=== PATIENT | male | born 1960 | race Caucasian/White ===

== ENCOUNTER 2022-05-11 05:37 | Outpatient (CLI) | payer MEDICAID ==
[~2022-05-11] VITALS: Ht 182.9 cm; Wt 85.0 kg
[2022-05-16] MEDS ORDERED: MIRT-69 PO (14:45)
[2022-05-16] MEDS ORDERED: ESOM20CA37 PO (14:45)
[2022-05-16] MEDS ORDERED: MULT-1104 PO (14:45)
[2022-05-16] MEDS ORDERED: CITA20TA12 PO (14:45)
[2022-05-16] MEDS ORDERED: DILT120T3 PO (14:45)
[2022-05-16] MEDS ORDERED: MTC10T PO (14:45)
[2022-05-16] MEDS ORDERED: OXYC-556 PO (14:45)
[2022-05-16] MEDS ORDERED: ROSU20TA32 PO (14:45)
[2022-05-16] MEDS ORDERED: ASPI81TA16 PO (14:45)
[2022-05-16] MEDS ORDERED: TMSL.4C PO (14:45)
== END 2022-05-16 15:01 | disposition home or self-care (01) ==
LOC: PREOP 05:37
PROVIDERS: ATTEND Otolaryngology Otolaryngology/Facial Plastic Surgery
DX: Z01.818 Encounter for other preprocedural examination (principal); J34.89 Other specified disorders of nose and nasal sinuses

== ENCOUNTER 2022-05-18 07:44 | Day surgery (SDC) | payer MEDICAID, MEDICARE ==
[2022-05-18] VITALS (11 sets, daily range): BP systolic 101–133; BP diastolic 68–82
[~2022-05-18] VITALS: Ht 182.9 cm; Wt 85.0 kg
[~2022-05-18 07:44] MED LIST: ASPI81TA16 PO; CITA20TA12 PO; DILT120T3 PO; ESOM20CA37 PO; MIRT-69 PO; MTC10T PO; MULT-1104 PO; OXYC-556 PO; ROSU20TA32 PO; TMSL.4C PO
[2022-05-18] MEDS ORDERED: LACTATED RINGERS 1,000 ML IV PRN (08:00)
[2022-05-18] MEDS ORDERED: COCAINE HCL 4% 2 ML SYR ONE (08:38)
[2022-05-18] MEDS ORDERED: LIDOCAINE/EPI 1%-1:100,000 (XYLOCAINE) 30ML ONE (08:38)
[2022-05-18] MEDS ORDERED: PHENYLEPHRINE 0.5% NASAL SPR (NEO-SYNEPHRINE) REG ONE (08:39)
[2022-05-18] MEDS ORDERED: BSS 15 ML ONE (08:39)
[2022-05-18] MEDS ORDERED: LIDOCAINE PF 2% 5 ML (XYLOCAINE) VIAL ONE (08:42)
[2022-05-18] MEDS ORDERED: ONDANSETRON 4 MG/2 ML (SDV) Z0FRAN ONE (08:42)
[2022-05-18] MEDS ORDERED: fentaNYL INJ 100 MCG/2 ML AMP ONE (08:42)
[2022-05-18] MEDS ORDERED: MIDAZOLAM 2 MG/2 ML (VERSED) VIAL ONE (08:42)
[2022-05-18] MEDS ORDERED: proPOfol 200 MG/20 ML (DIPRIVAN) VIAL IV ONE (08:42)
[2022-05-18] MEDS ORDERED: SEVOFLURANE (ULTANE) 15 ML INHAL SOLN ONE (08:42)
--- NOTE | 2022-05-18 08:47 | Progress Note-Pre Operative ---
Pre-Operative Progress Note Date of Available H&P: May 18, 2022 Date H&P Reviewed: May 18, 2022 Time H&P Reviewed: 08:30 History & Physical: H&P Reviewed, Patient Examed, No changes noted Changes from last HP none Pre-Operative Diagnosis: Nasoseptal Perforation with REcurrent Bleeding DANILO RIOS MD May 18, 2022 08:47
--- NOTE | 2022-05-18 08:48 | Progress Note-Post Operative ---
Post-Operative Progess Note Surgeon (s)/Safety Officer (s) Surgeon DANILO RIOS MD Safety Officer n/a Pre-Operative Diagnosis Nasoseptal Perforation with REcurrent Bleeding Post-Operative Diagnosis same Post-Op Procedure Note Date of Procedure: May 18, 2022 Name of Procedure Performed: Insetion of Nasopseptal Button Description & Findings Description and Findings: n/a Anesthesia Type get Estimated Blood Loss minimal Packing none. Specimen(s) collected/removed none DANILO RIOS MD May 18, 2022 08:48
[2022-05-18 09:00] LABS: BASOPHILS # (AUTO) 0.1 10^3/uL (0.0-0.1); BASOPHILS % (AUTO) 1 % (0-10); EOSINOPHILS # (AUTO) 0.2 10^3/uL (0.0-0.3); EOSINOPHILS % (AUTO) 3 % (0-10); HEMATOCRIT 37 % (40-54); HEMOGLOBIN 11.9 g/dL (13.3-17.7); LYMPHOCYTES # (AUTO) 2.5 10^3/uL (1.0-4.0); LYMPHOCYTES % (AUTO) 34 % (12-44); MEAN CORPUSCULAR HEMOGLOBIN 31 pg (25-34); MEAN CORPUSCULAR HGB CONC 32 g/dL (32-36); MEAN CORPUSCULAR VOLUME 94 fL (80-99); MEAN PLATELET VOLUME 9.7 fL (9.0-12.2); MONOCYTES # (AUTO) 0.5 10^3/uL (0.0-1.0); MONOCYTES % (AUTO) 7 % (0-12); NEUTROPHILS % (AUTO) 55 % (42-75); PLATELET COUNT 257 10^3/uL (130-400); WHITE BLOOD COUNT 7.3 10^3/uL (4.3-11.0)
[2022-05-18] MEDS ORDERED: D5 1/2 NS W/KCL 20 MEQ/L 1,000 ML IV SCH (09:00)
[2022-05-18 09:16] LABS: CALCIUM 9.1 MG/DL (8.5-10.1); CREATININE SERUM 0.81 MG/DL (0.60-1.30); POTASSIUM 3.8 MMOL/L (3.6-5.0)
[2022-05-18] MEDS ORDERED: GLYCOPYRROLATE 0.2 MG/ML (ROBINUL) 2 ML VIAL ONE (09:21)
[2022-05-18] MEDS ORDERED: SUGAMMADEX 500 MG/5 ML VIAL (BRIDION) IV ONE (09:29)
[2022-05-18] MEDS ORDERED: ROCURONIUM 50 MG/5 ML (ZEMURON) VIAL IV ONE (09:31)
[2022-05-18] MEDS ORDERED: HYDROmorphone 2 MG/ML VIAL (DILAUDID) IV ONE (09:45)
[2022-05-18] MEDS ORDERED: ONDANSETRON 4 MG/2 ML (SDV) Z0FRAN IVP PRN (09:45)
--- NOTE | 2022-05-18 11:40 | Anesthesia-General Post-Op ---
General Patient Condition Mental Status/LOC: Same as Preop Cardiovascular: Satisfactory Nausea/Vomiting: Absent Respiratory: Satisfactory Pain: Controlled Complications: Absent Post Op Complications Complications None Follow Up Care/Instructions Patient Instructions None needed. Anesthesia/Patient Condition Patient Condition Patient is doing well, no complaints, stable vital signs, no apparent adverse anesthesia problems. No complications reported per nursing. D/C home per [facility] Criteria: Yes KILEY MALONEY CRNA May 18, 2022 11:40
== END 2022-05-18 11:44 | disposition home or self-care (01) ==
LOC: SDC 07:44
PROVIDERS: ATTEND Otolaryngology Otolaryngology/Facial Plastic Surgery
DX: J34.89 Other specified disorders of nose and nasal sinuses (principal); R04.0 Epistaxis; Z87.891 Personal history of nicotine dependence
CPT/HCPCS: 36415; 80048; 85025; 87081; 93005